=== PATIENT | female | born 1965 | race African-American/Black ===

== ENCOUNTER 2018-01-20 16:07 | Emergency (ER) | payer MEDICARE, MEDICAID ==
[~2018-01-20] VITALS: Ht 162.6 cm; Wt 70.0 kg
[2018-01-20 16:11] VITALS: BP 150/80
== END 2018-01-20 19:35 | disposition left against medical advice (07) ==
LOC: ER 16:07
DX: Z04.8 Encounter for examination and observation for other specified reasons (principal); Z53.21 Procedure and treatment not carried out due to patient leaving prior to being seen by health care provider

== ENCOUNTER 2018-01-28 03:03 | Emergency (ER) | payer MEDICARE, MEDICAID ==
[~2018-01-28] VITALS: Ht 165.1 cm; Wt 79.0 kg
[2018-01-28 03:08] VITALS: BP 115/67
== END 2018-01-28 05:24 | disposition left against medical advice (07) ==
LOC: ER 03:24
DX: Z53.21 Procedure and treatment not carried out due to patient leaving prior to being seen by health care provider (principal)

== ENCOUNTER 2022-04-21 18:56 | Inpatient (IN) | payer MEDICARE, MEDICAID ==
[~2022-04-21] VITALS: Ht 152.4 cm; Wt 135.2 kg
[2022-04-22 01:22] LABS: EOSINOPHILS % 4.8 % (0.0-5.0); HEMATOCRIT. 32.8 % (36.0-48.0); HEMOGLOBIN. 10.5 g/dL (12.0-16.0); LYMPHOCYTES % 21.9 % (20.0-50.0); MEAN CORPUSCULAR HEMOGLOBIN 28.3 pg (28.0-32.0); MEAN CORPUSCULAR VOLUME 88.6 fL (81.0-99.0); MEAN PLATELET VOLUME 6.7 fl (7.4-10.4); MONOCYTES % 10.6 % (2.0-8.0); NEUTROPHILS % 61.7 % (40.0-76.0); PLATELET 410 x1000/uL (130-400)
[2022-04-22 01:26] LABS: CHLORIDE 102 mEq/L (98-107)
[2022-04-22] MEDS ORDERED: KETOROLAC 30MG/ML VIAL IV STA (01:35)
[2022-04-22 01:36] LABS: ETHANOL BLOOD < 10 mg/dL
[2022-04-22] MEDS ORDERED: FUROSEMIDE 40MG/4ML VIAL IVP ONE (01:45)
[2022-04-22 05:14] LABS: CLARITY URINE CLEAR (CLEAR); COLOR URINE YELLOW (YELLOW); KETONES URINE NEGATIVE (NEGATIVE); LEUKOCYTE ESTERASE URINE 2+ (NEGATIVE); NITRITE URINE NEGATIVE (NEGATIVE); OCCULT BLOOD URINE NEGATIVE (NEGATIVE); PH URINE 5.5 (4.5-8.0); PROTEIN URINE NEGATIVE (NEGATIVE); SPECIFIC GRAVITY URINE 1.012 (1.005-1.030)
[2022-04-22] MEDS ORDERED: LEVOFLOXACIN 750MG PREMIX 150 ML IV ONE (05:30)
[2022-04-22 12:30] VITALS: BP 96/73
[2022-04-22 12:50] VITALS: BP 128/86
[2022-04-22 16:00] VITALS: BP 115/61
[2022-04-22 20:00] VITALS: BP 114/55
[2022-04-22] MEDS ORDERED: CLONIDINE 0.1MG TABLET PO PRN (20:30)
[2022-04-22] MEDS ORDERED: NALOXONE HCL 0.4MG/ML VIAL IV PRN (20:30)
[2022-04-22] MEDS ORDERED: MAGNESIUM/ALUMINUM HYDROXIDE/SIMETHICONE 30ML UDC PO PRN (20:30)
[2022-04-22] MEDS ORDERED: ONDANSETRON HCL 4MG/2ML INJ IV PRN (20:30)
[2022-04-22] MEDS ORDERED: ACETAMINOPHEN 325MG TABLET PO PRN (20:30)
[2022-04-22] MEDS ORDERED: ENOXAPARIN 40MG/0.4ML SYR SUBCUT SCH (21:00)
[2022-04-23] VITALS: BP 120/75
[2022-04-23] MEDS: HYDROCODONE/ACETAMINOPHEN 5/325MG TABLET PO PRN ×2 (01:33→19:45)
[2022-04-23 04:00] VITALS: BP 125/68
[2022-04-23 08:30] LABS: BASOPHILS % 0.6 % (0.0-2.0); EOSINOPHILS % 3.9 % (0.0-5.0); HEMATOCRIT. 31.6 % (36.0-48.0); HEMOGLOBIN. 10.2 g/dL (12.0-16.0); MEAN CORPUSCULAR HEMOGLOBIN 29.2 pg (28.0-32.0); MEAN CORPUSCULAR VOLUME 90.3 fL (81.0-99.0); MEAN PLATELET VOLUME 7.6 fl (7.4-10.4); MONOCYTES % 9.9 % (2.0-8.0); NEUTROPHILS % 50.6 % (40.0-76.0); PLATELET 215 x1000/uL (130-400); RED CELL DISTRIBUTION WIDTH 16.3 % (11.6-14.6)
[2022-04-23] MEDS: OMEPRAZOLE 20MG CAPSULE EXTENDED RELEASE PO SCH (09:22)
[2022-04-23 10:16] LABS: CHLORIDE 103 mEq/L (98-107)
[2022-04-23 10:31] LABS: HDL CHOLESTEROL 55 mg/dL (40-59); LDL CHOLESTEROL 52 mg/dL (5-100); PHOSPHORUS 3.4 mg/dL (2.5-4.9); T4 FREE 1.24 ng/dL (0.76-1.46)
[2022-04-23 12:00] VITALS: BP 108/56
[2022-04-23] MEDS: FUROSEMIDE 20MG/2ML VIAL IVP SCH (15:23)
[2022-04-23] MEDS: CELECOXIB 200MG CAPSULE PO SCH (15:23)
[2022-04-23 16:00] VITALS: BP 116/72
[2022-04-23] MEDS: ENOXAPARIN 30MG/0.3ML SYR SUBCUT SCH (19:48)
[2022-04-23 20:00] VITALS: BP 93/39
[2022-04-24] MEDS: HYDROCODONE/ACETAMINOPHEN 5/325MG TABLET PO PRN (01:47)
[2022-04-24] MEDS: ENOXAPARIN 30MG/0.3ML SYR SUBCUT SCH (06:47)
[2022-04-24 07:06] LABS: BASOPHILS % 0.5 % (0.0-2.0); EOSINOPHILS % 5.1 % (0.0-5.0); HEMATOCRIT. 30.5 % (36.0-48.0); HEMOGLOBIN. 9.9 g/dL (12.0-16.0); MEAN CORPUSCULAR HEMOGLOBIN 28.8 pg (28.0-32.0); MEAN CORPUSCULAR VOLUME 88.8 fL (81.0-99.0); MEAN PLATELET VOLUME 6.7 fl (7.4-10.4); MONOCYTES % 11.6 % (2.0-8.0); NEUTROPHILS % 48.8 % (40.0-76.0); PLATELET 370 x1000/uL (130-400); RED BLOOD CELL COUNT 3.43 mill/uL (4.2-5.4); RED CELL DISTRIBUTION WIDTH 16.3 % (11.6-14.6)
[2022-04-24 08:00] VITALS: BP 110/50
[2022-04-24] MEDS: FUROSEMIDE 20MG/2ML VIAL IVP SCH (08:22)
[2022-04-24] MEDS: CELECOXIB 200MG CAPSULE PO SCH (08:22)
[2022-04-24] MEDS: OMEPRAZOLE 20MG CAPSULE EXTENDED RELEASE PO SCH (08:22)
[2022-04-24] MEDS ORDERED: CELE200C PO (09:34)
[2022-04-24 11:32] LABS: CHLORIDE 101 mEq/L (98-107)
[2022-04-24 12:00] VITALS: BP 125/57
[2022-04-24 16:00] VITALS: BP 121/58
[2022-04-24] MEDS ORDERED: ENOXAPARIN 40MG/0.4ML SYR SUBCUT SCH (16:45)
[2022-04-24] MEDS: ENOXAPARIN 40MG/0.4ML SYR SUBCUT SCH (22:08)
[2022-04-25 04:00] VITALS: BP 150/71
[2022-04-25 08:00] VITALS: BP 117/71
[2022-04-25] MEDS: CELECOXIB 200MG CAPSULE PO SCH (08:53)
[2022-04-25] MEDS: FUROSEMIDE 20MG/2ML VIAL IVP SCH (08:53)
[2022-04-25] MEDS: OMEPRAZOLE 20MG CAPSULE EXTENDED RELEASE PO SCH (08:53)
[2022-04-25] MEDS: ENOXAPARIN 40MG/0.4ML SYR SUBCUT SCH ×2 (08:58→21:38)
[2022-04-25 12:00] VITALS: BP 105/67
[2022-04-25 16:00] VITALS: BP 121/59
[2022-04-25 20:00] VITALS: BP 123/69
[2022-04-26] VITALS: BP 121/52
[2022-04-26 04:00] VITALS: BP 131/62
[2022-04-26 08:00] VITALS: BP 115/64
[2022-04-26] MEDS: ENOXAPARIN 40MG/0.4ML SYR SUBCUT SCH ×2 (09:00→21:05)
[2022-04-26] MEDS: FUROSEMIDE 20MG/2ML VIAL IVP SCH (09:00)
[2022-04-26] MEDS: CELECOXIB 200MG CAPSULE PO SCH (09:00)
[2022-04-26] MEDS: FAMOTIDINE 20MG TABLET PO SCH ×2 (09:00→21:05)
[2022-04-26 12:00] VITALS: BP 112/46
[2022-04-26 20:00] VITALS: BP 114/62
[2022-04-26] MEDS ORDERED: IPRATROPIUM/ALBUTEROL 0.5-3(2.5)MG/3ML NEB HHN PRN (21:00)
[2022-04-26] MEDS: HYDROCODONE/ACETAMINOPHEN 5/325MG TABLET PO PRN (21:07)
[2022-04-27 04:00] VITALS: BP 120/61
[2022-04-27] MEDS: FAMOTIDINE 20MG TABLET PO SCH (09:25)
[2022-04-27] MEDS: CELECOXIB 200MG CAPSULE PO SCH (09:25)
[2022-04-27] MEDS: ENOXAPARIN 40MG/0.4ML SYR SUBCUT SCH (09:27)
[2022-04-27] MEDS: FUROSEMIDE 20MG/2ML VIAL IVP SCH (09:27)
[2022-04-27 12:00] VITALS: BP 126/63
[2022-04-27 12:58] VITALS: BP 139/86
== END 2022-04-27 14:35 | DRG 291 ==
LOC: ER 18:56 → EDBEDREQ 04-22 09:13 → EDBEDREQTM 04-22 09:19 → EDBEDREQ 04-22 09:19 → ENRESERV 04-22 10:06 → 7WST 04-22 11:41
PROVIDERS: ADMIT Internal Medicine; ATTEND Internal Medicine
DX: I11.0 Hypertensive heart disease with heart failure (principal); I50.33 Acute on chronic diastolic (congestive) heart failure; N30.00 Acute cystitis without hematuria; Z68.43 Body mass index [BMI] 50.0-59.9, adult; E44.0 Moderate protein-calorie malnutrition; F20.9 Schizophrenia, unspecified; E66.9 Obesity, unspecified; R06.03 Acute respiratory distress; F31.9 Bipolar disorder, unspecified; J44.9 Chronic obstructive pulmonary disease, unspecified; D64.9 Anemia, unspecified; Z91.14 Patient's other noncompliance with medication regimen; Z59.00 Homelessness unspecified; Z88.0 Allergy status to penicillin
CPT/HCPCS: 36415; 71045; 80048; 80053; 80061; 80076; 80320; 81003; 83735; 83880; 84100; 84439; 84443; 84484; 85025; 87426; 93005; 93306; 93970; 97162; 97166; 97530; 97535; 99285; J1650; J1885; J1940; J1956; A4315; G0480